=== PATIENT | male | born 1980 | race Caucasian/White ===

== ENCOUNTER 2017-08-10 00:13 | Emergency (ER) | payer BC, MEDICAID ==
[2017-08-10 00:18] VITALS: BP 136/87
[2017-08-10] MEDS ORDERED: Ketorolac 30 MG/ML SDV IVPUSH ONE (00:51)
--- NOTE | 2017-08-10 01:44 | EDM.PDOC ---
ED HPI GENERAL MEDICAL PROBLEM - General Chief Complaint: Flank Pain Stated Complaint: POSSIBLE KIDNEY STONES / DIRECT TO ER [facility] Time Seen by Provider: 08/10/17 00:51 Source of Information: Reports: Patient History Limitations: Reports: No Limitations - History of Present Illness INITIAL COMMENTS - FREE TEXT/NARRATIVE: This young man arrived by EMS complaining of right flank pain. He's had a number of kidney stones in the past and previously had been put on a renal diet which seemed to work however he got off of it and then in the past 6 months he has had 5 stones. He says his ureters are small and he never can pass even the smallest stones adhesive had to be either surgically removed arthritic lithotripsy. Pain is been going on for 4 hours now no fever pain level is about 7 out of 10. Right Flank Pain Score (Numeric/FACES): 6 - Related Data Allergies Allergy/AdvReac Type Severity Reaction Status Date / Time ketamine Allergy Anxiety Verified 08/10/17 00:59 morphine Allergy Nausea Uncoded 08/10/17 00:21 Home Meds: Home Meds ClonazePAM [KlonoPIN] 1 mg PO BID 08/10/17 [History] Ibuprofen 800 mg PO QID 08/10/17 [History] Metoprolol Succinate [Toprol XL] 25 mg PO DAILY 08/10/17 [History] Zolpidem Tartrate [Ambien] 10 mg PO BEDTIME 08/10/17 [History] risperiDONE [Risperdal] 3 mg PO BEDTIME 08/10/17 [History] Past Medical History Cardiovascular History: Reports: Hypertension Genitourinary History: Reports: Renal Calculus Musculoskeletal History: Reports: Fracture Psychiatric History: Reports: Anxiety - Past Surgical History GI Surgical History: Reports: Hernia, Inguinal Male Surgical History: Reports: Lithotripsy (ESWL), Renal Calculus Neurological Surgical History: Reports: Lumbar Spine, Spinal Fusion Other Musculoskeletal Surgeries/Procedures:: neck frature 16yo Social & Family History - Tobacco Use Smoking Status *Q: Current Every Day Smoker Years of Tobacco use: 13 Packs/Tins Daily: 1 Second Hand Smoke Exposure: No - Alcohol Use Days Per Week of Alcohol Use: 0 - Recreational Drug Use Recreational Drug Use: Yes Recreational Drug Type: Reports: Marijuana/Hashish Recreational Drug Use Frequency: Weekly ED ROS GENERAL - Review of Systems Review Of Systems: ROS reveals no pertinent complaints other than HPI. ED EXAM, RENAL/ - Physical Exam Exam: See Below Exam Limited By: No Limitations General Appearance: Alert, WD/WN, Moderate Distress Eye Exam: Bilateral Eye: Normal Inspection Throat/Mouth: Normal Oropharynx Respiratory/Chest: Lungs Clear Cardiovascular: Regular Rate, Rhythm GI/Abdominal: Non-Tender Back Exam: CVA Tenderness (R) (Mild) Extremities: Normal Inspection Neurological: Alert, Oriented Psychiatric: Normal Affect Skin Exam: Warm, Dry Course - Vital Signs Last Recorded V/S: Last Vital Signs Temp 37 C 08/10/17 00:18 Pulse 112 H 08/10/17 00:18 Resp 20 08/10/17 00:18 BP 136/87 08/10/17 00:18 Pulse Ox 96 08/10/17 00:18 - Orders/Labs/Meds Labs: Laboratory Tests 08/10/17 Range/Units 00:52 Urine Color Yellow Urine Appearance Cloudy Urine pH 5.0 (4.5-8.0) Ur Specific Goldonna 1.025 (1.008-1.030) Urine Protein 30 H (NEGATIVE) mg/dL Urine Glucose (UA) Normal (NEGATIVE) mg/dL Urine Ketones 50 H (NEGATIVE) mg/dL Urine Occult Blood Large (NEGATIVE) Urine Nitrite Negative (NEGAITVE) Urine Bilirubin Small (NEGATIVE) Urine Urobilinogen 4 (NORMAL) mg/dL Ur Leukocyte Esterase Negative (NEGATIVE) Urine RBC 50-75 H (0-5) Urine WBC 5-10 H (0-5) Ur Epithelial Cells Few Amorphous Sediment Not seen Urine Bacteria Many Urine Mucus Many Meds: Medications Discontinued Medications Generic Name Dose Route Start Last Admin Trade Name Rell PRN Reason Stop Dose Admin Ketorolac Tromethamine 30 mg 08/10/17 00:51 08/10/17 00:55 Toradol IVPUSH 08/10/17 00:52 30 mg ONETIME ONE Administration - Re-Assessments/Exams Free Text/Narrative Re-Assessment/Exam: 08/10/17 11:54 Urinalysis shows increased RBCs and just a small amount of WBCs. He got very good pain relief with 30 mg of Toradol IV. Departure - Departure Time of Disposition: 01:43 Disposition: Home, Self-Care 01 Condition: Fair Clinical Impression: Ureteric colic - Discharge Information Instructions: Renal Colic, [id number] Referrals: PCP,None [Primary Care Provider] - Forms: ED Department Discharge Additional Instructions: Continue taking Motrin as before. If needed take Percocet 5/325, #15 tablets, one or 2 tablets every 4 hours. This medication can cause sedation and impair driving. Contact your Dr. or the urologist on Friday. Consider getting back on the renal diet that was successful in the past
== END 2017-08-10 01:51 | disposition home or self-care (01) ==
LOC: JP.ED 00:13
DX: N23 Unspecified renal colic (principal); I10 Essential (primary) hypertension; F17.210 Nicotine dependence, cigarettes, uncomplicated; F41.9 Anxiety disorder, unspecified; Z98.890 Other specified postprocedural states; Z79.899 Other long term (current) drug therapy; Z88.5 Allergy status to narcotic agent; Z88.8 Allergy status to other drugs, medicaments and biological substances
CPT/HCPCS: 81001; 96374; 99284; J1885

== ENCOUNTER 2018-04-02 07:35 | Emergency (ER) | payer MEDICAID ==
[2018-04-02 07:47] VITALS: BP 125/96
[2018-04-02] MEDS ORDERED: LORazepam 2 MG/ML SDV IM ONE (08:08)
--- NOTE | 2018-04-02 08:12 | EDM.PDOCBH ---
ED HPI GENERAL MEDICAL PROBLEM - General Chief Complaint: Behavioral/Psych Stated Complaint: PANIC ATTACK Time Seen by Provider: 04/02/18 08:09 Source of Information: Reports: Patient History Limitations: Reports: No Limitations - History of Present Illness INITIAL COMMENTS - FREE TEXT/NARRATIVE: pt was out of his clonipin over the weekend and just got started on the medication yesterday. he has not been able to rest and has been very agitated. He does not feel that the klonopin has been helpful. Onset: Gradual, Other ( last several days. ) Duration: Hour(s): Location: Reports: Generalized, Other ( Pt is very agitated. ) Associated Symptoms: Reports: No Other Symptoms - Related Data Allergies Allergy/AdvReac Type Severity Reaction Status Date / Time ketamine AdvReac Anxiety Verified 04/02/18 07:47 morphine AdvReac Nausea Verified 04/02/18 07:47 Home Meds: Home Meds ClonazePAM [KlonoPIN] 1 mg PO TID 08/10/17 [History] Ibuprofen 800 mg PO QID 08/10/17 [History] Past Medical History Cardiovascular History: Reports: Hypertension Genitourinary History: Reports: Renal Calculus Musculoskeletal History: Reports: Fracture Psychiatric History: Reports: Anxiety, Bipolar - Past Surgical History GI Surgical History: Reports: Hernia, Inguinal Male Surgical History: Reports: Lithotripsy (ESWL), Renal Calculus Neurological Surgical History: Reports: Lumbar Spine, Spinal Fusion Other Musculoskeletal Surgeries/Procedures:: neck frature 16yo Social & Family History - Tobacco Use Smoking Status *Q: Current Every Day Smoker Years of Tobacco use: 7 Packs/Tins Daily: 2 ED ROS GENERAL - Review of Systems Review Of Systems: See Below Constitutional: Reports: No Symptoms HEENT: Reports: No Symptoms Respiratory: Reports: No Symptoms Cardiovascular: Reports: No Symptoms Endocrine: Reports: No Symptoms GI/Abdominal: Reports: No Symptoms : Reports: No Symptoms Musculoskeletal: Reports: No Symptoms Skin: Reports: No Symptoms Neurological: Reports: No Symptoms Psychiatric: Reports: Agitation, Anxiety, Other (pt is hearing voices. ) ED EXAM, BEHAVIORAL HEALTH - Physical Exam Exam: See Below Text/Narrative:: pt is feeling very anxious and he is not able to get control of it. He does have a mental health appt this afternoon. Exam Limited By: No Limitations General Appearance: Alert, Moderate Distress Ears: Normal TMs Nose: Normal Inspection Throat/Mouth: Normal Inspection Head: Atraumatic Neck: Normal Inspection Respiratory/Chest: No Respiratory Distress Cardiovascular: Regular Rate, Rhythm GI/Abdominal: Soft, Non-Tender (Male) Exam: Deferred Rectal (Males) Exam: Deferred Back Exam: Normal Inspection Extremities: Normal Inspection COURSE, BEHAVIORAL HEALTH COMP - Course Vital Signs: Last Vital Signs Temp 35.8 C 04/02/18 07:46 Pulse 99 04/02/18 07:46 Resp 16 04/02/18 07:46 BP 125/96 H 04/02/18 07:46 Pulse Ox 97 04/02/18 07:46 Orders, Labs, Meds: Medications Discontinued Medications Generic Name Dose Route Start Last Admin Trade Name Freq PRN Reason Stop Dose Admin Lorazepam 1 mg 04/02/18 08:08 04/02/18 08:16 Ativan IM 04/02/18 08:09 1 mg ONETIME ONE Administration Medical Clearance: 04/02/18 08:47 pt was given ativan 1 mg im and he is much more relaxed. Departure - Departure Time of Disposition: 08:48 Disposition: Home, Self-Care 01 Condition: Fair Clinical Impression: Anxiety, Bipolar 1 disorder with moderate afshin, Schizophrenia - Discharge Information Referrals: PCP,None [Primary Care Provider] - Forms: ED Department Discharge Care Plan Goals: keep appt with mental health today. Consider a med adjustment to cover the biploar.
== END 2018-04-02 09:00 | disposition home or self-care (01) ==
LOC: JP.ED 07:35
DX: F41.9 Anxiety disorder, unspecified (principal); F31.9 Bipolar disorder, unspecified; F20.9 Schizophrenia, unspecified; F17.210 Nicotine dependence, cigarettes, uncomplicated; I10 Essential (primary) hypertension; Z88.5 Allergy status to narcotic agent; Z88.8 Allergy status to other drugs, medicaments and biological substances
CPT/HCPCS: 96372; 99283; J2060

== ENCOUNTER 2018-07-29 11:52 | Emergency (ER) | payer MEDICAID ==
[2018-07-29 12:08] VITALS: BP 133/84
[2018-07-29] MEDS ORDERED: ClonazePAM 0.5 MG Tab PO ONE (12:24)
[2018-07-29] MEDS ORDERED: ClonazePAM 1 MG Tab PO ONE (12:30)
--- NOTE | 2018-07-29 12:31 | EDM.PDOCBH ---
ED HPI GENERAL MEDICAL PROBLEM - General Chief Complaint: Behavioral/Psych Stated Complaint: ANXIETY/ PANIC ATTACK Time Seen by Provider: 07/29/18 12:15 Source of Information: Reports: Patient, Old Records, RN History Limitations: Reports: No Limitations - History of Present Illness INITIAL COMMENTS - FREE TEXT/NARRATIVE: 38 yo male with a pHx of anxiety forgot his medications in the [facility] a couple days ago and so has been out. Is due to get a refill in a couple more days. Does not have a family doctor and did not try to get a hold of his psychiatrist yet. Takes clonazepam 20 mg po in the morning and 1 mg po in the late afternoon. Also has a mood stabilizer, but does not know the name of it. Onset: Today Onset Date: 07/29/18 Duration: Hour(s): Location: Reports: Generalized Severity: Mild Improves with: Reports: Medication Worsens with: Reports: Other (being out of his meds) Context: Reports: Other (Hx of anxiety) Associated Symptoms: Reports: No Other Symptoms Treatments SK[place]EL[place] END: Reports: Other (see below) (none) Back Pain Score (Numeric/FACES): 5 - Related Data Allergies Allergy/AdvReac Type Severity Reaction Status Date / Time ketamine AdvReac Anxiety Verified 07/29/18 12:09 morphine AdvReac Nausea Verified 07/29/18 12:09 Home Meds: Home Meds ClonazePAM [KlonoPIN] 1 mg PO TID 08/10/17 [History] Ibuprofen 800 mg PO QID 08/10/17 [History] Past Medical History Cardiovascular History: Reports: Hypertension Genitourinary History: Reports: Renal Calculus Musculoskeletal History: Reports: Fracture Psychiatric History: Reports: Anxiety, Bipolar - Past Surgical History GI Surgical History: Reports: Hernia, Inguinal Male Surgical History: Reports: Lithotripsy (ESWL), Renal Calculus Neurological Surgical History: Reports: Lumbar Spine, Spinal Fusion Other Musculoskeletal Surgeries/Procedures:: neck frature 16yo Social & Family History - Tobacco Use Smoking Status *Q: Heavy Tobacco Smoker Years of Tobacco use: 8 Packs/Tins Daily: 2 - Recreational Drug Use Recreational Drug Use: Yes Recreational Drug Type: Reports: Marijuana/Hashish, Methamphetamine Recreational Drug Use Frequency: Rarely ED ROS GENERAL - Review of Systems Review Of Systems: See Below Constitutional: Reports: No Symptoms Cardiovascular: Reports: No Symptoms Skin: Reports: No Symptoms Neurological: Reports: No Symptoms Psychiatric: Reports: Anxiety, Mood Lability. Denies: Agitation, Confusion, Depression, Hallucinations, Homicidal Ideation, Suicidal Ideation ED EXAM, BEHAVIORAL HEALTH - Physical Exam Exam: See Below Exam Limited By: No Limitations General Appearance: Alert, WD/WN, No Apparent Distress Eye Exam: Bilateral Eye: Normal Inspection Ears: Normal External Exam, Normal Canal, Hearing Grossly Normal Nose: Normal Inspection, Normal Mucosa, No Blood Throat/Mouth: Normal Voice, No Airway Compromise Head: Atraumatic, Normocephalic Neck: Normal Inspection Extremities: Normal Inspection Neurological: Alert, Normal Mood/Affect, CN II-XII Intact, Normal Cognition, No Motor/Sensory Deficits, Oriented x 3 Psychiatric: Alert, Normal Affect, Normal Cognition, Normal Mood, Oriented Skin Exam: Warm, Dry, Intact, Normal color, No rash COURSE, BEHAVIORAL HEALTH COMP - Course Vital Signs: Last Vital Signs Temp 35.8 C 07/29/18 12:07 Pulse 90 07/29/18 12:07 Resp 18 07/29/18 12:07 BP 133/84 07/29/18 12:07 Pulse Ox 97 07/29/18 12:07 Orders, Labs, Meds: Active Orders 24 hr Category Date Time Status ClonazePAM [KlonoPIN] Med 07/29/18 12:24 Once 2 mg PO ONETIME ONE Medication Orders Clonazepam (Klonopin) 2 mg PO ONETIME ONE Stop: 07/29/18 12:25 Medications Generic Name Dose Route Start Last Admin Trade Name Freq PRN Reason Stop Dose Admin Clonazepam 2 mg 07/29/18 12:24 Klonopin PO 07/29/18 12:25 ONETIME ONE Departure - Departure Time of Disposition: 12:40 Disposition: Home, Self-Care 01 Condition: Good Clinical Impression: Anxiety - Discharge Information *PRESCRIPTION DRUG MONITORING PROGRAM REVIEWED*: Not Applicable *COPY OF PRESCRIPTION DRUG MONITORING REPORT IN PATIENT VIOLET: Not Applicable Referrals: PCP,None [Primary Care Provider] - Additional Instructions: Get established with a primary care provider. Contact your psychiatrist regarding your lost medications. - My Orders Last 24 Hours: My Active Orders 07/29/18 12:24 ClonazePAM [KlonoPIN] 2 mg PO ONETIME ONE - Assessment/Plan Last 24 Hours: My Active Orders 07/29/18 12:24 ClonazePAM [KlonoPIN] 2 mg PO ONETIME ONE
== END 2018-07-29 12:49 | disposition home or self-care (01) ==
LOC: JP.ED 11:52
DX: F41.9 Anxiety disorder, unspecified (principal); F17.210 Nicotine dependence, cigarettes, uncomplicated; Z88.5 Allergy status to narcotic agent
CPT/HCPCS: 99283; A9270

== ENCOUNTER 2018-12-20 13:51 | Emergency (ER) | payer MEDICAID ==
[2018-12-20 14:22] VITALS: BP 148/110
--- NOTE | 2018-12-20 15:14 | EDM.PDOC ---
ED HPI GENERAL MEDICAL PROBLEM - General Chief Complaint: ENT Problem Stated Complaint: TOOTHACHE Time Seen by Provider: 12/20/18 15:06 Source of Information: Reports: Patient, Family, RN Notes Reviewed History Limitations: Reports: No Limitations - History of Present Illness INITIAL COMMENTS - FREE TEXT/NARRATIVE: 38-year-old gentleman presents emergency department day complaint of dental pain , he fractured a tooth several months ago is now broken gotten worse pain increased significantly he arrived by EMS he has a fevers and swelling at home Tooth/Teeth Pain Score (Numeric/FACES): 8 - Related Data Allergies Allergy/AdvReac Type Severity Reaction Status Date / Time ketamine AdvReac Anxiety Verified 09/17/18 22:35 morphine AdvReac Nausea Verified 09/17/18 22:35 Home Meds: Home Meds ClonazePAM [KlonoPIN] 1 mg PO TID 08/10/17 [History] Ibuprofen 800 mg PO QID 08/10/17 [History] Escitalopram [Lexapro] 20 mg PO DAILY 09/17/18 [History] Gabapentin [Neurontin] 900 mg PO TID 09/17/18 [History] Past Medical History Cardiovascular History: Reports: Hypertension Genitourinary History: Reports: Renal Calculus Musculoskeletal History: Reports: Fracture Psychiatric History: Reports: Anxiety, Bipolar - Infectious Disease History Infectious Disease History: Reports: Chicken Pox - Past Surgical History GI Surgical History: Reports: Hernia, Inguinal Male Surgical History: Reports: Lithotripsy (ESWL), Renal Calculus Neurological Surgical History: Reports: Lumbar Spine, Spinal Fusion Other Musculoskeletal Surgeries/Procedures:: neck frature 16yo Social & Family History - Family History Family Medical History: Unobtainable - Tobacco Use Smoking Status *Q: Current Every Day Smoker Years of Tobacco use: 7 Packs/Tins Daily: 1 - Caffeine Use Caffeine Use: Reports: None - Recreational Drug Use Recreational Drug Use: Yes Drug Use in Last 12 Months: Yes Recreational Drug Type: Reports: Marijuana/Hashish Recreational Drug Use Frequency: Socially ED ROS ENT - Review of Systems Review Of Systems: See Below Constitutional: Reports: Fever HEENT: Reports: Dental Pain, Other (Facial swelling) Respiratory: Reports: No Symptoms Cardiovascular: Reports: No Symptoms GI/Abdominal: Reports: No Symptoms ED EXAM, ENT - Physical Exam Exam: See Below Text/Narrative:: Mouth mucosa is moist and pink no erythema or exudate noted soft palate tongue is midline uvula is midline tooth #32 is fractured at the gumline it is tender to the touch there is some edema appreciated on the right side of the face and down into the neck no tracheal deviation Exam Limited By: No Limitations General Appearance: Alert, WD/WN, Moderate Distress Respiratory/Chest: No Respiratory Distress Course - Vital Signs Last Recorded V/S: Last Vital Signs Temp 95.4 F 12/20/18 14:29 Pulse 63 12/20/18 14:29 Resp 16 12/20/18 14:29 BP 148/110 H 12/20/18 14:29 Pulse Ox 97 12/20/18 14:29 Departure - Departure Time of Disposition: 15:13 Disposition: Home, Self-Care 01 Condition: Fair Clinical Impression: Dental abscess - Discharge Information Referrals: PCP,None [Primary Care Provider] - Additional Instructions: Take full course of antibiotics, use ibuprofen for baseline pain control use hydrocodone for breakthrough pain, please report to the dental clinic Friday at 8:15 for further evaluation and treatment - Assessment/Plan Plan: Assessment Acuity = acute Site and laterality = dental abscess with tooth fracture #32 Etiology = probable dental caries Manifestations = pain, fever Location of injury = Home Lab values = none Plan Prescription written for amoxicillin 500 mg by mouth 3 times a day 10 days, hydrocodone 5/325 one tab by mouth 3 times a day when necessary total #10, referral written for many dentist Friday at 8:15 This note was dictated using [employer] voice recognition software please call with any questions on syntax or grammar.
== END 2018-12-20 15:28 | disposition home or self-care (01) ==
LOC: JP.ED 13:51
DX: K04.7 Periapical abscess without sinus (principal); I10 Essential (primary) hypertension; Z88.5 Allergy status to narcotic agent; Z79.899 Other long term (current) drug therapy
CPT/HCPCS: 99283

== ENCOUNTER 2020-04-13 21:26 | Emergency (ER) | payer MEDICAID ==
[2020-04-13 21:37] VITALS: BP 120/75; PULSE 85
--- NOTE | 2020-04-13 22:44 | EDM.PDOC ---
ED HPI GENERAL MEDICAL PROBLEM - General Chief Complaint: Headache Stated Complaint: HEADACHE,EARS ITCHY,PAINFUL Time Seen by Provider: 04/13/20 21:59 Source of Information: Reports: Patient, RN, RN Notes Reviewed History Limitations: Reports: No Limitations - History of Present Illness INITIAL COMMENTS - FREE TEXT/NARRATIVE: 39 yo male presents to the ED with complaints of a headache that has been ongoing for the last 2-3 weeks. He has a history of migraines but this headache feel different than his previous migraines. The pain has been constant but waxes and wanes in intensity ranging from 2/10 to 9/10. Lan describes that headache as pressure that is in the center of his brain that is exerting pressure on his skull. He states deep breathing help the headache. Denies any vision changes, numbness, tingling, or gait disturbances. No nausea or vomiting. Lan also state that a few weeks ago he had some clear drainage out of his ears when the "external eardrum" erupted. He admits to digging in his ears with a eneida pin or q-tips as they feel itchy and he is "laney obsessive about keeping them clean". He is getting "black bugs" or "dried chunks of gunk that has been in his ears for years" out of both ears. He has used peroxide "just around the outer part" in the past week. Lan states that he has been hungry and eating well but has lost 20-30 pounds over the last month or so. headache Pain Score (Numeric/FACES): 8 - Related Data Allergies Allergy/AdvReac Type Severity Reaction Status Date / Time ketamine AdvReac Anxiety Verified 04/13/20 22:07 morphine AdvReac Nausea Verified 04/13/20 22:07 Home Meds: Home Meds ClonazePAM [KlonoPIN] 1 mg PO TID 08/10/17 [History] Ibuprofen 800 mg PO QID 08/10/17 [History] Gabapentin [Neurontin] 900 mg PO TID 09/17/18 [History] Past Medical History - Past Health History Medical/Surgical History: Denies Medical/Surgical History Cardiovascular History: Reports: Heart Murmur, Hypertension Genitourinary History: Reports: Renal Calculus Musculoskeletal History: Reports: Fracture Neurological History: Reports: Concussion, Migraines Psychiatric History: Reports: Anxiety, Bipolar - Infectious Disease History Infectious Disease History: Reports: Chicken Pox - Past Surgical History GI Surgical History: Reports: Hernia, Inguinal Male Surgical History: Reports: Lithotripsy (ESWL), Renal Calculus Neurological Surgical History: Reports: Lumbar Spine, Spinal Fusion Other Musculoskeletal Surgeries/Procedures:: neck frature 16yo Social & Family History - Family History Family Medical History: Unobtainable - Tobacco Use Smoking Status *Q: Current Every Day Smoker Years of Tobacco use: 10 Packs/Tins Daily: 2 Tobacco Use Comment: Pt has not smoked cigarettes for approximately one week - Caffeine Use Caffeine Use: Reports: None - Recreational Drug Use Recreational Drug Use: Yes Drug Use in Last 12 Months: Yes Recreational Drug Type: Reports: Marijuana/Hashish Recreational Drug Use Frequency: Weekly ED ROS GENERAL - Review of Systems Review Of Systems: See Below Constitutional: Reports: Weight Loss HEENT: Reports: Dental Pain, Ear Discharge, Ear Pain, Throat Pain Respiratory: Reports: No Symptoms Cardiovascular: Reports: No Symptoms Endocrine: Reports: No Symptoms GI/Abdominal: Reports: No Symptoms : Reports: No Symptoms Musculoskeletal: Reports: No Symptoms Skin: Reports: No Symptoms Neurological: Reports: Headache Psychiatric: Reports: Anxiety Hematologic/Lymphatic: Reports: Swollen Glands Immunologic: Reports: No Symptoms - Physical Exam Exam: See Below Exam Limited By: No Limitations General Appearance: Alert, No Apparent Distress Eye Exam: Bilateral Eye: EOMI, PERRL Ears: Hearing Grossly Normal, Normal TMs, Other (bilat ear canals are irritated and mildly erythematous. no edema noted. Ear canals have scattered areas of superficial lesions from scraping his ears out that are covered in dark scabs/ dried bloody. Left canal has a small amount of purulence to drainage. ) Nose: Normal Inspection, Normal Mucosa Throat/Mouth: Normal Inspection, Other (multiple teeth that are broken or rotted to the gumline. multiple large dental caries) Head Exam: Atraumatic, Normocephalic Neck: Normal Inspection, Supple Respiratory/Chest: No Respiratory Distress, Lungs Clear, Normal Breath Sounds Cardiovascular: Normal Peripheral Pulses, Regular Rate, Rhythm, No Edema, No Murmur GI/Abdominal: Normal Bowel Sounds, Soft, Other (mild tenderness to epigastric region that he states has been like that for years. ) (Male) Exam: Deferred Neuro Exam (Abbreviated): Alert, Oriented, Other (compulsive like behaviors) Extremities: Normal Inspection, Non-Tender, Normal Capillary Refill Psychiatric: Normal Affect Skin Exam: Warm, Dry, Intact Course - Vital Signs Last Recorded V/S: Last Vital Signs Temp 97.5 F 04/13/20 21:38 Pulse 85 04/13/20 21:38 Resp 16 04/13/20 21:38 BP 120/75 04/13/20 21:38 Pulse Ox 96 04/13/20 21:38 - Orders/Labs/Meds Orders: Active Orders 24 hr Category Date Time Status UA W/MICROSCOPIC [URIN] Stat Lab 04/13/20 21:58 Ordered Labs: Laboratory Tests 04/13/20 04/13/20 04/13/20 Range/Units 21:58 22:03 22:18 WBC 10.0 (4.5-11.0) K/uL RBC 4.97 (4.30-5.90) M/uL Hgb 15.5 H (12.0-15.0) g/dL Hct 45.8 (40.0-54.0) % MCV 92 (80-98) fL MCH 31 (27-31) pg MCHC 34 (32-36) % Plt Count 283 (150-400) K/uL Neut % (Auto) 73 H (36-66) % Lymph % (Auto) 18 L (24-44) % Fajardo % (Auto) 8 H (2-6) % Eos % (Auto) 1 L (2-4) % Baso % (Auto) 1 (0-1) % Sodium 141 (140-148) mmol/L Potassium 4.2 (3.6-5.2) mmol/L Chloride 104 (100-108) mmol/L Carbon Dioxide 26 (21-32) mmol/L Anion Gap 10.6 (5.0-14.0) mmol/L BUN 18 (7-18) mg/dL Creatinine 1.3 (0.8-1.3) mg/dL Est Cr Clr Drug Dosing 60.71 mL/min Estimated GFR (MDRD) > 60 (>60) Glucose 106 (74-106) mg/dL Calcium 9.1 (8.5-10.1) mg/dL Total Bilirubin 0.5 (0.2-1.0) mg/dL AST 15 (15-37) U/L ALT 25 (12-78) U/L Alkaline Phosphatase 54 (46-116) U/L C-Reactive Protein (0.0-0.3) mg/dL Total Protein 8.0 (6.4-8.2) g/dL Albumin 4.8 (3.4-5.0) g/dL Globulin 3.2 (2.3-3.5) g/dL Albumin/Globulin Ratio 1.5 (1.2-2.2) TSH, Ultra Sensitive (0.358-3.740) uIU/mL Urine Opiates Screen Negative (NEGATIVE) Ur Oxycodone Screen Negative (NEGATIVE) Urine Methadone Screen Negative (NEGATIVE) Ur Propoxyphene Screen Negative (NEGATIVE) Ur Barbiturates Screen Negative (NEGATIVE) Ur Tricyclics Screen Negative (NEGATIVE) Ur Phencyclidine Scrn Negative (NEGATIVE) Ur Amphetamine Screen Negative (NEGATIVE) U Methamphetamines Scrn Negative (NEGATIVE) Urine MDMA Screen Negative (NEGATIVE) U Benzodiazepines Scrn Negative (NEGATIVE) U Cocaine Metab Screen Negative (NEGATIVE) U Marijuana (THC) Screen Presumptive positive H (NEGATIVE) Ethyl Alcohol mg/dL 04/13/20 04/13/20 Range/Units 22:18 22:35 WBC (4.5-11.0) K/uL RBC (4.30-5.90) M/uL Hgb (12.0-15.0) g/dL Hct (40.0-54.0) % MCV (80-98) fL MCH (27-31) pg MCHC (32-36) % Plt Count (150-400) K/uL Neut % (Auto) (36-66) % Lymph % (Auto) (24-44) % Fajardo % (Auto) (2-6) % Eos % (Auto) (2-4) % Baso % (Auto) (0-1) % Sodium (140-148) mmol/L Potassium (3.6-5.2) mmol/L Chloride (100-108) mmol/L Carbon Dioxide (21-32) mmol/L Anion Gap (5.0-14.0) mmol/L BUN (7-18) mg/dL Creatinine (0.8-1.3) mg/dL Est Cr Clr Drug Dosing mL/min Estimated GFR (MDRD) (>60) Glucose (74-106) mg/dL Calcium (8.5-10.1) mg/dL Total Bilirubin (0.2-1.0) mg/dL AST (15-37) U/L ALT (12-78) U/L Alkaline Phosphatase (46-116) U/L C-Reactive Protein 0.14 (0.0-0.3) mg/dL Total Protein (6.4-8.2) g/dL Albumin (3.4-5.0) g/dL Globulin (2.3-3.5) g/dL Albumin/Globulin Ratio (1.2-2.2) TSH, Ultra Sensitive 0.764 (0.358-3.740) uIU/mL Urine Opiates Screen (NEGATIVE) Ur Oxycodone Screen (NEGATIVE) Urine Methadone Screen (NEGATIVE) Ur Propoxyphene Screen (NEGATIVE) Ur Barbiturates Screen (NEGATIVE) Ur Tricyclics Screen (NEGATIVE) Ur Phencyclidine Scrn (NEGATIVE) Ur Amphetamine Screen (NEGATIVE) U Methamphetamines Scrn (NEGATIVE) Urine MDMA Screen (NEGATIVE) U Benzodiazepines Scrn (NEGATIVE) U Cocaine Metab Screen (NEGATIVE) U Marijuana (THC) Screen (NEGATIVE) Ethyl Alcohol < 3 mg/dL - Radiology Interpretation Free Text/Narrative:: head CT is negative for any acute processes. - Re-Assessments/Exams Free Text/Narrative Re-Assessment/Exam: 04/13/20 23:29 labs are completed and reassuring. UDS positive for marijuana. Lan states he has not done meth for 4 years. Departure - Departure Time of Disposition: 00:03 Disposition: Home, Self-Care 01 Condition: Good Clinical Impression: Headache, acute, Otitis externa of both ears - Discharge Information *PRESCRIPTION DRUG MONITORING PROGRAM REVIEWED*: Not Applicable *COPY OF PRESCRIPTION DRUG MONITORING REPORT IN PATIENT VIOLET: Not Applicable Instructions: General Headache Without Cause, [id number] Referrals: PCP,None [Primary Care Provider] - Forms: ED Department Discharge Additional Instructions: use the ear drops in your ears as prescribed- 4 drops in both ears four times a day for 10 days. put drops in one ear and lay with that ear up for 5 minutes. Then repeat with other ear. Do not put any Q-tips, eneida pins, or any other items in your ears at all. Your labs are with in normal limits and your head ct was negative for any acute illness or processes. Make sure you are drinking well and staying hydrated. Use ibuprofen 600-800mg up to three times a day for the headache. Follow up with your PCP in 3-5 days if you are not feeling better. Call or return to the ED with any worsening of symptoms or other concerns. Sepsis Event Note (ED) - Evaluation Sepsis Screening Result: No Definite Risk - Focused Exam Vital Signs: Vital Signs Temp Pulse Resp BP Pulse Ox 04/13/20 21:38 97.5 F 85 16 120/75 96 04/13/20 21:36 97.5 F 85 16 120/75 96 - My Orders Last 24 Hours: My Active Orders 04/13/20 21:58 UA W/MICROSCOPIC [URIN] Stat - Assessment/Plan Last 24 Hours: My Active Orders 04/13/20 21:58 UA W/MICROSCOPIC [URIN] Stat Plan: discharge home. dx: otits externa.
--- NOTE | 2020-04-14 00:15 | CRLCT ---
INDICATION: Constant headache TECHNIQUE: CT head without contrast. COMPARISON: None FINDINGS: CSF spaces: Within normal limits for age. Brain parenchyma: The anderson-white differentiation is normal. No sign of mass, hemorrhage, or midline shift. Skull base and calvarium: The visualized paranasal sinuses and mastoid air cells demonstrate no acute or significant findings. The visualized orbits are grossly unremarkable. No skull fractures. IMPRESSION: Unremarkable noncontrast head CT. Dictated by Suman Lackey MD @ 04/14/2020 12:13:11 AM Please note that all CT scans at this facility use dose modulation, iterative reconstruction, and/or weight-based dosing when appropriate to reduce radiation dose to as low as reasonably achievable. Dictated by: Suman Lackey MD @ 04/14/2020 00:13:18 (Electronically Signed)
== END 2020-04-14 00:18 | disposition home or self-care (01) ==
LOC: JP.ED 21:26
DX: H60.93 Unspecified otitis externa, bilateral (principal); R51 Headache; I10 Essential (primary) hypertension; F41.9 Anxiety disorder, unspecified; F17.210 Nicotine dependence, cigarettes, uncomplicated; Z88.5 Allergy status to narcotic agent; Z88.4 Allergy status to anesthetic agent; Z79.899 Other long term (current) drug therapy
CPT/HCPCS: 36415; 70450; 80053; 80305-QW; 80307; 84443; 85025; 86140; 99284-25